=== PATIENT | female | born 1985 | race Two or more races ===

== ENCOUNTER 2019-07-10 20:25 | Emergency (ER) | payer OTHER ==
[2019-07-10 20:37] VITALS: BMI 23.5
[2019-07-10] MEDS ORDERED: SODIUM CHLORIDE 0.9% 500 ML INFUS.BAG IV ONE ×2 (21:59→23:23)
[2019-07-10] MEDS ORDERED: FAMOTIDINE 20 MG/50 ML IVPB 20 MG/50 ML MG IVPB ONE ×2 (21:59→22:02)
--- NOTE | 2019-07-10 22:07 | PDOC ---
History of Present Illness - General Chief Complaint: Nausea/Vomiting Stated Complaint: PAIN & VOMITING Time Seen by Provider: 07/10/19 21:24 History Source: Patient Exam Limitations: No Limitations - History of Present Illness Initial Comments: 07/10/19 22:01 Patient is a 33-year-old female with history of anemia complaining of diarrhea x4 days. States she has many episodes of watery nonbloody diarrhea with everything that she eats. She is also using metronidazole suppositories and today after using a suppository she became acutely weak, nauseous, and had some lower abdominal pain. Patient assumes that she had an allergic reaction to the metronidazole. She denies fever, chills PMD: [place] PMHX: as above PSOCHX: neg cig, neg drug, occ etoh ALL: NKDA Review of Systems: GENERAL/CONSTITUTIONAL: No fever or chills. No weakness. No weight change. HEAD, EYES, EARS, NOSE AND THROAT: No change in vision. No ear pain or discharge. No sore throat. CARDIOVASCULAR: No chest pain or shortness of breath. RESPIRATORY: No cough, wheezing, or hemoptysis. GASTROINTESTINAL: No nausea, vomiting, diarrhea or constipation. No rectal bleeding. GENITOURINARY: No dysuria, frequency, or change in urination. MUSCULOSKELETAL: No joint or muscle swelling or pain. No neck or back pain. SKIN AND BREASTS: No rash or easy bruising. NEUROLOGIC: No headache, vertigo, loss of consciousness, or loss of sensation. PSYCHIATRIC: No depression or anxiety. ENDOCRINE: No increased thirst. No abnormal weight change. HEMATOLOGIC/LYMPHATIC: No anemia, easy bleeding, or history of blood clots. ALLERGIC/IMMUNOLOGIC: No hives or skin allergy. No latex allergy. GENERAL: [The patient is awake, alert, and fully oriented, in mild distress.] HEAD: [Normal with no signs of trauma.] EYES: [Pupils equal, round and reactive to light, extraocular movements intact, sclera anicteric, conjunctiva clear.] ENT: [Ears normal, nares patent, oropharynx clear without exudates. Moist mucous membranes.] NECK: [Normal range of motion, supple without lymphadenopathy, JVD, or masses.] LUNGS: [Breath sounds equal, clear to auscultation bilaterally. No wheezes, and no crackles.] HEART: [(+) Tachycardia rhythm, normal S1 and S2 without murmur, rub.] ABDOMEN: [Soft, nontender, normoactive bowel sounds. No guarding, no rebound. No masses.] EXTREMITIES: [Normal range of motion, no edema. No clubbing or cyanosis. No cords, erythema, or tenderness.] NEUROLOGICAL: [Cranial nerves II through XII grossly intact. Normal speech, normal gait.] PSYCH: [Normal mood, normal affect.] SKIN: [warmth, Dry, normal turgor, no rashes or lesions noted.] Past History - Past Medical History Allergies/Adverse Reactions: Allergies Allergy/AdvReac Type Severity Reaction Status Date / Time No Known Allergies Allergy Verified 07/10/19 20:37 Home Medications: Ambulatory Orders metroNIDAZOLE 0.75% VAG. GEL [Metrogel 0.75% Vaginal Gel -] 1 applic VG DAILY COPD: No - Immunization History Immunization Up to Date: Yes - Psycho Social/Smoking Cessation Hx Smoking History: Never smoked Have you smoked in the past 12 months: No Information on smoking cessation initiated: No Hx Alcohol Use: No Drug/Substance Use Hx: No *Physical Exam - Vital Signs Last Vital Signs Temp Pulse Resp BP Pulse Ox 99.8 F H 114 H 17 108/73 98 07/10/19 20:35 07/10/19 20:35 07/10/19 20:35 07/10/19 20:35 07/10/19 20:35 ED Treatment Course - LABORATORY CBC & Chemistry Diagram: 07/10/19 22:10 07/10/19 22:10 Medical Decision Making - Medical Decision Making 07/10/19 22:01 Patient is a 33-year-old female with history of anemia complaining of diarrhea x4 days. States she has many episodes of watery nonbloody diarrhea with everything that she eats. She is also using metronidazole suppositories and today after using a suppository she became acutely weak, nauseous, and had some lower abdominal pain. Patient assumes that she had an allergic reaction to the metronidazole. She denies fever, chills. Symptoms consistent with a viral gastroenteritis Labs IV fluids, Pepcid Reassess 07/11/19 00:55 Patient feels improved, tolerating po and is requesting to go home. Labs reviewed noted to have slightly elevated liver enzymes with normal bilirubin. Abdomen remains soft nontender. Instructed patient to follow-up with primary care doctor for repeat blood work. I discussed the physical exam findings, ancillary test results and final diagnoses with the patient. I answered all of the patient's questions. The patient was satisfied with the care received and felt comfortable with the discharge plan and treatment plan. The Patient agrees to follow up with the primary care physician within 24-72 hours. Selected Entries 07/11/19 00:50 Temperature 98.3 F Pulse Rate [ 85 Radial] Respiratory 18 Rate Blood Pressure 100/71 [Left Arm] O2 Sat by Pulse 99 Oximetry (%) Discharge - Discharge Information Problems reviewed: Yes Clinical Impression/Diagnosis: Enteritis Condition: Stable Disposition: HOME - Follow up/Referral - Patient Discharge Instructions Patient Printed Discharge Instructions: DI for Diarrhea and Traveler's Diarrhea -- Adult, DI for Nausea -- Adult Additional Instructions: Your Discharge Instructions: You must call primary care physician within 24 hours to arrange follow-up. Return to the Emergency Department with any new, persistent or worsening symptoms, for fever, chills, SOB, dizziness or any other concerning changes that may occur. - Post Discharge Activity
[2019-07-10] MEDS ORDERED: ACETAMINOPHEN 325 MG TABLET (FP) PO ONE (22:13)
[2019-07-10 22:20] LABS: URINE APPEARANCE CLEAR; URINE BILIRUBIN NEGATIVE (NEGATIVE); URINE COLOR YELLOW; URINE GLUCOSE (UA) 2+ (NEGATIVE); URINE KETONE NEGATIVE (NEGATIVE); URINE LEUK ESTERASE NEGATIVE (NEGATIVE); URINE NITRITE NEGATIVE (NEGATIVE); URINE PROTEIN NEGATIVE (NEGATIVE); URINE UROBILINOGEN 0.2 mg/dL (0.2-1.0)
[2019-07-10 22:21] LABS: BASO % 0.2 % (0-2.0); EOS % 0.2 % (0-4.5); HEMATOCRIT 32.5 % (32.4-45.2); HEMOGLOBIN 10.7 GM/dL (10.7-15.3); LYMPH % 2.6 % (8-40); MCH 29.2 pg (25.7-33.7); MCHC 32.9 g/dl (32.0-36.0); MEAN CELL VOLUME 88.7 fl (80-96); MEAN PLT VOLUME 8.6 fl (7.5-11.1); MONO % 7.5 % (3.8-10.2); NEUT % 89.5 % (42.8-82.8); PLATELET COUNT 278 K/MM3 (134-434); RBC 3.66 M/mm3 (3.60-5.2); RDW 14.3 % (11.6-15.6)
[2019-07-10] MEDS ORDERED: ACETAMINOPHEN 325 MG TABLET (FP) ONE (22:22)
[2019-07-10 22:41] LABS: ALBUMIN 3.5 g/dl (3.4-5.0); BILIRUBIN,TOTAL 0.5 mg/dL (0.2-1); BLOOD UREA NITROGEN 11.6 mg/dL (7-18); CALCIUM 8.5 mg/dL (8.5-10.1); CREATININE 0.8 mg/dL (0.55-1.3); TOT PROT 6.5 g/dl (6.4-8.2)
[2019-07-10 22:42] LABS: POTASSIUM 3.9 mmol/L (3.5-5.1)
[2019-07-11 00:51] VITALS: BP 100/71; PULSE 85; TEMP 98.3
== END 2019-07-11 01:07 | disposition home or self-care (01) ==
LOC: JER 20:25
PROC: 3E033GC Introduction of Other Therapeutic Substance into Peripheral Vein, Percutaneous Approach (ICD-10-PCS; principal; 2019-07-10)
DX: A08.4 Viral intestinal infection, unspecified (principal); B97.89 Other viral agents as the cause of diseases classified elsewhere; D64.9 Anemia, unspecified
CPT/HCPCS: 36415; 80053; 81003; 85025; 99283-25